=== PATIENT | male | born 1990 | race African-American/Black ===

== ENCOUNTER 2017-10-26 20:46 | Inpatient (IN) ==
--- NOTE | 2017-10-26 21:07 | ED ---
HPI General Chief complaint: Psychiatric Symptoms Stated complaint: Psych screen/VCSO Time Seen by Provider: 10/26/17 21:05 History of Present Illness HPI narrative: This is a 27-year-old male who presents under Carr act initiated by the Police Department. According to his paperwork he has been "stating to his mother and friends that he wants to kill himself. He was on Facebook today and made statements about murdering someone. Weston is seeing people that are not there and he is talking to them." The patient disputes these statements but he will not really provide any information about the context of what happened today. Therefore symptom duration is unknown. Associated signs and symptoms are unknown. He has no complaints. Related Data Home Medications Medication Instructions Recorded Confirmed bupropion HCl [Wellbutrin XL] 150 mg PO QAM 10/26/17 10/26/17 buspirone 5 mg PO BID 10/26/17 10/26/17 melatonin 3 mg PO HS 10/26/17 10/26/17 Allergies Allergy/AdvReac Type Severity Reaction Status Date / Time No Known Allergies Allergy Unverified 10/26/17 20:59 Review of Systems ROS Unobtainable All other systems reviewed negative except as stated in HPI and other (Patient refuses providing additional history) FORMERLY [facility], [facility] Medical History Medical History Depression (Acute) Medical history unknown (Acute) Social History Social History Substance History: Active Abuse Second Hand Smoke Exposure: No Smoking Status: Smoker, status unknown Tobacco Type: Cigarettes How Often Do You Have a Drink Containing Alcohol: 2 to 3 times a week Recent Travel in [facility] within the Last 8 Weeks: No Exam Narrative Exam Narrative: GENERAL: This is a well-developed well-nourished male who is agitated. SKIN: Warm and dry. HEAD: Atraumatic. Normocephalic. EYES: Pupils equal and round. No scleral icterus. No injection or drainage. ENT: No nasal bleeding or discharge. Mucous membranes pink and moist. NECK: Trachea midline. No JVD. CARDIOVASCULAR: Regular rate and rhythm. No murmur appreciated. RESPIRATORY: No accessory muscle use. Clear to auscultation. Breath sounds equal bilaterally. GASTROINTESTINAL: Abdomen soft, non-tender, nondistended. Hepatic and splenic margins not palpable. MUSCULOSKELETAL: No obvious deformities. No clubbing. No cyanosis. No edema. NEUROLOGICAL: Awake and alert. No obvious cranial nerve deficits. Motor grossly within normal limits. Normal speech. PSYCHIATRIC: Agitated. Course Initial Documented Vital Signs Temperature 98.5 F 10/26/17 20:54 Pulse Rate 135 H 10/26/17 20:54 Respiratory Rate 18 10/26/17 20:54 Blood Pressure 132/93 H 10/26/17 20:54 Pulse Oximetry 96 10/26/17 20:54 Last Documented Vital Signs Temperature 98.5 F 10/26/17 20:54 Pulse Rate 125 H 10/26/17 23:02 Respiratory Rate 16 10/26/17 23:02 Blood Pressure 164/95 H 10/26/17 23:02 Pulse Oximetry 97 10/26/17 23:02 Medical Decision Making MDM Narrative Medical decision making narrative: Mental health screening discussed with the patient. Psychiatric screen ordered. This patient became increasingly agitated Ativan verbally threatening. She required chemical sedation and physical restraints. His lab work is been reviewed. Notable for creatinine of 1.74 and an alcohol level 183. The patient is medically cleared for psychiatric disposition. Differential Diagnosis Differential Diagnosis: Adjustment reaction, acute psychosis, substance-induced mood disorder, major depressive disorder, bipolar disorder, schizophrenia Lab Data Result diagrams: 10/26/17 20:58 10/26/17 20:58 Lab Results 10/26/17 10/26/17 Range/Units 20:58 20:58 WBC 7.2 (4.0-11.0) th/mm3 RBC 5.02 (4.50-5.90) mil/mm3 Hgb 15.7 (13.0-17.0) gm/dL Hct 46.0 (39.0-51.0) % MCV 91.7 (80.0-100.0) fL MCH 31.2 (27.0-34.0) pg MCHC 34.1 (32.0-36.0) % RDW 13.3 (11.6-17.2) % Plt Count 245 (150-450) th/mm3 MPV 10.6 (7.0-11.0) fL Neut % (Auto) 50.3 (16.0-70.0) % Lymph % (Auto) 45.0 H (9.0-44.0) % [place] % (Auto) 4.2 (0.0-8.0) % Eos % (Auto) 0.2 (0.0-4.0) % Baso % (Auto) 0.3 (0.0-2.0) % Neut # (Auto) 3.6 (1.8-7.7) th/mm3 Lymph # (Auto) 3.3 (1.0-4.8) th/mm3 [place] # (Auto) 0.3 (0.0-0.9) th/mm3 Eos # (Auto) 0.0 (0.0-0.4) th/mm3 Baso # (Auto) 0.0 (0.0-0.2) th/mm3 WBC Differential . Differential Comment Auto diff final Sodium 141 (136-145) meq/L Potassium 4.5 (3.5-5.1) meq/L Chloride 109 H (98-107) meq/L Carbon Dioxide 17.9 L (21.0-32.0) meq/L Anion Gap 14 (5-15) meq/L BUN 16 (7-18) mg/dL Creatinine 1.76 H (0.60-1.30) mg/dL Estimated GFR 57 L (>89) mL/min Random Glucose 112 H (74-106) mg/dL Calcium 9.8 (8.5-10.1) mg/dL Total Bilirubin 0.6 (0.2-1.0) mg/dL AST 39 H (15-37) U/L ALT 52 (12-78) U/L Alkaline Phosphatase 50 (45-117) U/L Total Protein 8.2 (6.4-8.2) g/dL Albumin 3.9 (3.4-5.0) g/dL TSH 2.440 (0.358-3.740) uIU/mL Serum Alcohol 183 H (0-5) mg/dL Discharge Plan Discharge Disposition Patient Disposition: 30 Still Patient Discharge Condition Condition: Stable Discharge Details Discharge Problem: Medical clearance for psychiatric admission Physicians Team ED Provider: [facility] ED Midlevel Provider: Roney Flaherty Rxs /Orders / Referrals /Forms Prescriptions: No Action bupropion HCl [Wellbutrin XL] 150 mg Tablet Extended Release 24 Hr 150 mg PO QAM RF: 0 buspirone 5 mg Tablet 5 mg PO BID RF: 0 melatonin 3 mg PO HS RF: 0 Discharge Interventions Interventions: Vital Signs Last Done: 10/26/17 23:02 Status ED Status: With Doctor
[2017-10-26 21:49] LABS: Baso % (Auto) 0.3 % (0.0-2.0); Eos % (Auto) 0.2 % (0.0-4.0); Hemoglobin 15.7 gm/dL (13.0-17.0); Lymph # (Auto) 3.3 th/mm3 (1.0-4.8); Mean Corpuscular HGB Conc 34.1 % (32.0-36.0); Mean Corpuscular Hemoglobin 31.2 pg (27.0-34.0); Mean Corpuscular Volume 91.7 fL (80.0-100.0); Mean Platelet Volume 10.6 fL (7.0-11.0); Mono # (Auto) 0.3 th/mm3 (0.0-0.9); Mono % (Auto) 4.2 % (0.0-8.0); Neut # (Auto) 3.6 th/mm3 (1.8-7.7); Neut % (Auto) 50.3 % (16.0-70.0); Platelet Count 245 th/mm3 (150-450); Red Blood Count 5.02 mil/mm3 (4.50-5.90); Red Cell Distribution Width 13.3 % (11.6-17.2); White Blood Count 7.2 th/mm3 (4.0-11.0)
[2017-10-26 22:34] LABS: Alanine Aminotransferase 52 U/L (12-78); Albumin 3.9 g/dL (3.4-5.0); Alcohol 183 mg/dL (0-5); Alkaline Phosphatase 50 U/L (45-117); Anion Gap 14 meq/L (5-15); Aspartate Aminotransferase 39 U/L (15-37); Blood Urea Nitrogen 16 mg/dL (7-18); Calcium 9.8 mg/dL (8.5-10.1); Carbon Dioxide 17.9 meq/L (21.0-32.0); Chloride 109 meq/L (98-107); Glomerular Filtration Rate 57 mL/min (>89); Glucose,Random 112 mg/dL (74-106); Potassium 4.5 meq/L (3.5-5.1); Sodium 141 meq/L (136-145); Total Protein 8.2 g/dL (6.4-8.2)
--- NOTE | 2017-10-27 15:01 | P.HPPSY ---
Provisional Diagnosis Admission Date: October 27, 2017 09:35 [place] I.: Major depressive disorder, recurrent, severe, without psychosis, alcohol use disorder [place] II.: Deferred [place] III.: No significant medical history Competence Certification of Person's Competence To Provide Express and Informed Consent I have personally examined Twila Klein JR, a person being served at [facility] on, October 27, 2017 1440. Express and informed consent means consent voluntarily given in writing, by a competent person, after sufficient explanation and disclosure of the subject matter involved to enable the person to make a knowing and willful decision without any element of force, fraud, deceit, duress, or other form of constraint or coercion. This person is 18 years of age or older, is not now known to be incompetent to consent to treatment with a guardian advocate, and does not have a health care surrogate or proxy currently making medical treatment decisions. I have found this person to be one of the following: [] Competent to provide express and informed consent, as defined above, for voluntary admission to this facility and is competent to provide express and informed consent for treatment. He/she has the consistent capacity to make well reasoned, willful, and knowing decisions concerning his or her medical or mental health treatment. The person fully and consistently understands the purpose of the admission for examination/placement and is fully capable of personally exercising all rights assured under [place] [] Incompetent to provide express and informed consent to voluntary admission, and this is incompetent to provide express and informed consent to treatment. The person must be transferred to involuntary status and a petition for a guardian advocate filed with the Circuit Court. [x] Refusing to provide express and informed consent to voluntary admission but is competent to provide express and informed consent for treatment. The person must be discharged or transferred to involuntary status. Form shall be completed within 24 hours of a person's arrival at the receiving facility and filed in the clinical record of each person: 1. Admitted on a voluntary basis 2. Permitted to provide express and informed consent to his/her own treatment 3. Allowed to transfer from involuntary to voluntary status 4. Prior to permitting a person to consent to his or her own treatment after having been previously found incompetent to consent to treatment. History of Present Illness Capacity: Has capacity History of Present Illness: The patient is a 27-year-old -English man, domiciled with his mother in [place], but , unemployed, , with psychiatric history of depression, no previous psychiatric hospitalizations, previous suicidal attempts, [facility], he is on Wellbutrin 150 mg twice daily, BuSpar 15 mg 3 times daily, no significant medical history, who presents under Carr act initiated by the Police Department. According to his paperwork he has been "stating to his mother and friends that he wants to kill himself. He was on Facebook today and made statements about murdering someone. Weston is seeing people that are not there and he is talking to them." The patient disputes these statements but he will not really provide any information about the context of what happened today. Therefore symptom duration is unknown. Associated signs and symptoms are unknown. He has no complaints. On his arrival to the ER the patient was quite agitated, aggressive , he had to be manually, physically and chemically restrained last night. He was medicated with Geodon 10 mg IM, Ativan 2 mg IM, Benadryl 50 mg IM. Today for psychiatric evaluation the patient is a still a little bit sedated, but more cooperative. He reports that he has been quite depressed in the last 2 weeks "because my brother was incarcerated and the teens has not been going very well with my ". He reports that he has been feeling depressed, with increased sense of hopelessness, helplessness, worthlessness, and suicidal thoughts. At the same time he has been drinking alcohol, not taking his medications. He says that he has been diagnosed with depression several years ago, he has been follow-up in the [place] clinic for medication and psychotherapy. He is oriented 3, no agitation or aggressive behavior present at this moment. - Inpatient Certification I certify that the inpatient services were ordered in accordance with Medicare regulations governing the order. This includes certification that hospital inpatient services are reasonable and necessary and in the case of services not specified as inpatient-only under 42 CFR 419.22(n), that they are appropriately provided as inpatient services in accordance to with the 2-midnight benchmark under 43 CFR 412.3(e) I certify that inpatient psychiatric hospital services are medically necessary. Evaluation and treatment and/or diagnostic testing are expected to improve the patient's condition. The patient needs on a daily basis, active treatment furnished directly by or requiring the supervision of inpatient psychiatric facility personnel. Review of Systems Constitutional: Denies anorexia, Denies body ache(s), Denies chills, Denies daytime sleepiness, Denies excessive sweating, Denies fatigue, Denies fever(s), Denies headache(s), Denies increased appetite, Denies lack of energy, Denies malaise, Denies night sweats, Denies weakness, Denies weight gain, Denies weight loss, Denies other Cardiovascular: Denies chest pain, Denies chest pain at rest, Denies chest pain with activity, Denies excessive sweating, Denies fainting, Denies fast heart rate, Denies foot swelling, Denies generalized swelling, Denies irregular heart rhythm, Denies leg pain with activity, Denies leg sores, Denies leg swelling, Denies lightheadedness, Denies radiating jaw, neck or arm pain, Denies rapid, pounding, or irregular heartbeat, Denies shortness of breath, Denies shortness of breath with activity, Denies shortness of breath when lying down, Denies shortness of breath causing sudden awakening, Denies slow heart rate, Denies other Respiratory: Denies change in phlegm color, Denies chest congestion, Denies cough, Denies coughing up blood, Denies excessive phlegm production, Denies pain on inspiration, Denies pain with cough, Denies shortness of breath, Denies shortness of breath with activity, Denies snoring, Denies stridor, Denies wheezing, Denies other Gastrointestinal: Denies abdominal pain, Denies belching, Denies black, tarry stools, Denies bloating, Denies bright, red blood in stools, Denies change in bowel habits, Denies constant urge to pass stool, Denies change in stools, Denies coffee ground vomit, Denies constipation, Denies cramping, Denies difficulty swallowing, Denies excessive passing of gas, Denies feeling full early, Denies heartburn, Denies incontinent of stools, Denies loose stools, Denies nausea, Denies pain with swallowing, Denies vomiting, Denies vomiting blood, Denies other Genitourinary: Denies blood in semen, Denies blood in urine, Denies decreased urination, Denies difficulty urinating, Denies difficulty with ejaculations, Denies erectile dysfunction, Denies genital lesions, Denies genital pain, Denies painful urination, Denies side pain, Denies frequent nighttime urination , Denies painful ejaculations, Denies penile discharge, Denies scrotal swelling , Denies testicle lump, Denies testicle pain, Denies urinary frequency, Denies urinary hesitancy, Denies urinary incontinence, Denies urinary urgency, Denies other Musculoskeletal: Denies abnormal walking, Denies back pain, Denies body aches, Denies decreased muscle mass, Denies deformity, Denies joint pain, Denies joint swelling, Denies limited joint movement, Denies loss of height, Denies muscle cramps, Denies muscle weakness, Denies neck pain, Denies numbness, Denies radiating pain into limb, Denies stiffness, Denies tingling, Denies other Neurologic: Denies abnormal hearing, Denies abnormal movements, Denies abnormal speech, Denies abnormal walking, Denies behavioral changes, Denies burning sensations, Denies confusion, Denies dizziness, Denies fainting, Denies frequent falls, Denies headache(s), Denies lack of coordination, Denies localized weakness, Denies loss of vision, Denies memory loss, Denies numbness, Denies other visual disturbances, Denies radiating pain, Denies restless legs, Denies convulsions, Denies seizure-like activity, Denies sensory deficit, Denies tingling, Denies tingling/numbness/burning sensations, Denies tremor(s), Denies unsteadiness, Denies weakness, Denies other Psychiatric: Reports behavioral changes, Reports depression, Reports thoughts of hurting/killing yourself [facility] - History History Provided By: Family Member, Law Enforcement - Medical History Medical History: Medical History (Last Updated 10/26/17 @ 20:56 by Candelaria Randall RN) Depression Medical history unknown - Tobacco History Second Hand Smoke Exposure: No Tobacco Use In Past 30 Days: No (UNKNOWN) Smoking Status: Smoker, status unknown Tobacco Type: Cigarettes - Alcohol History How Often Do You Have a Drink Containing Alcohol: 2 to 3 times a week - Substance Use History Substance History: Active Abuse - Substance Use Type Other Type: COUGH AND COLD Status: Active Route Used: By Mouth - Travel History Recent Travel in the [facility] Within the Last 8 Weeks: No - Immunization History Tetanus Immunization: Unsure Hx Influenza Vaccine This Season: No Medications and Allergies Allergies Allergy/AdvReac Type Severity Reaction Status Date / Time No Known Allergies Allergy Unverified 10/26/17 20:59 Home Medications Medication Instructions Recorded Confirmed Type buspirone 5 mg PO BID 10/26/17 10/26/17 History melatonin 3 mg PO HS 10/26/17 10/26/17 History Results - Labs CBC & Chem 7: 10/26/17 20:58 10/26/17 20:58 Labs: Laboratory Results - last 24 hr 10/26/17 10/26/17 20:58 20:58 WBC 7.2 RBC 5.02 Hgb 15.7 Hct 46.0 MCV 91.7 MCH 31.2 MCHC 34.1 RDW 13.3 Plt Count 245 MPV 10.6 Neut % (Auto) 50.3 Lymph % (Auto) 45.0 H [place] % (Auto) 4.2 Eos % (Auto) 0.2 Baso % (Auto) 0.3 Neut # (Auto) 3.6 Lymph # (Auto) 3.3 [place] # (Auto) 0.3 Eos # (Auto) 0.0 Baso # (Auto) 0.0 WBC Differential . Differential Comment Auto diff final Sodium 141 Potassium 4.5 Chloride 109 H Carbon Dioxide 17.9 L Anion Gap 14 BUN 16 Creatinine 1.76 H Estimated GFR 57 L Random Glucose 112 H Calcium 9.8 Total Bilirubin 0.6 AST 39 H ALT 52 Alkaline Phosphatase 50 Total Protein 8.2 Albumin 3.9 TSH 2.440 Serum Alcohol 183 H Exam Vital signs: Vital Signs 10/26/17 20:54 10/26/17 23:02 10/27/17 06:30 Temperature 98.5 F Pulse Rate 135 H 125 H 87 Respiratory Rate 18 16 Blood Pressure 132/93 H 164/95 H 123/67 Pulse Oximetry 96 97 10/27/17 06:40 Temperature Pulse Rate Respiratory Rate 16 Blood Pressure Pulse Oximetry Intake & Output 10/26/17 10/27/17 10/27/17 18:59 06:59 18:59 Weight 83.915 kg Narrative: Patient has marked psychomotor retardation, is a little bit sedated, Mental Status Examination Appearance: Appropriate Consciousness: Alert Orientation: x4 Speech: Hesitant, Slow Language: Adequate Fund of Knowledge: Adequate Memory: Unremarkable Mood: Sad Affect: Sad Thought Process & Associations: Intact Thought Content: Appropriate Hallucination Type: None Delusion Type: None Suicidal Ideation: Yes Suicidal Plan: No Suicidal Intention: No Homicidal Ideation: No Homicidal Plan: No Homicidal Intention: No Insight: Poor Judgment: Poor Assessment and Plan - Assessment (1) Major depressive disorder Code(s): F32.9 - Major depressive disorder, single episode, unspecified Status : Acute - Plan Plan: Estimated LOS: [] days Psychiatric evaluation today the patient presents guarded, superficially cooperative, he reports about 2 weeks of ongoing depression, with increased sense of helplessness, hopelessness, worthlessness, increased sensitivity to frustration rejection, suicidal thoughts to the point that yesterday the patient expressed to his family that he wanted to commit suicide. Patient reports a subacute stressors problems with his , recent incarceration with his brother, noncompliant with psychotropics. His arrival to the ER last night the patient was very agitated, aggressive, and he was described as psychotic, paranoid and having perceptual disturbances. He had to be chemically, physically and manually restrained. Given his past psychiatric history of depression, suicidal attempts, noncompliant medications and increased risk of danger to self and other he would be admitted in psychiatry for stabilization and safety. We will start Wellbutrin 150 mg twice daily. BuSpar 15 mg daily. [facility] protocol. Transfer to 2700 unit. Collateral information is still pending. Will consult psychiatry for second opinion. Justification for Continued Inpatient Stay: Patient will be admitted in psychiatry for stabilization and safety (1) Major depressive disorder Qualifiers: Major depression recurrence: recurrent Major depression episode severity: severe Psychotic features: without psychotic features
[2017-10-27] MEDS ORDERED: Acetaminophen 325 MG Tablet PO PRN (20:10)
[2017-10-27] MEDS ORDERED: Aluminum/Magnesium/Simethacone Susp 30 ML UDC PO PRN (20:10)
[2017-10-27] MEDS: LORazepam 1 MG Tablet PO PRN (21:31)
[2017-10-27] MEDS: buPROPion 150 MG 12 HR Tablet PO SCH (21:31)
[2017-10-28] MEDS: buPROPion 150 MG 12 HR Tablet PO SCH ×2 (08:34→21:07)
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
[2017-10-29] MEDS: buPROPion 150 MG 12 HR Tablet PO SCH ×2 (09:01→20:28)
--- NOTE | 2017-10-29 11:29 | P.PNPSY ---
Subjective Remarks: Patient seen and examined with nurse and counselor. Chart reviewed. Case discussed with nursing staff. No behavioral issues noted overnight. Case discussed with counselor who has obtained collateral information from the patient's mother, and I have reviewed this collateral with the counselor. On my examination today, the patient is in good spirits. He denies any suicidal or homicidal ideation. Denies any audiovisual hallucinations. He seems more receptive to the inpatient chemical dependency rehabilitation today, saying that he has spoken with his family about this yesterday. Denies side effects from medications. Says that he normally takes BuSpar 10 mg 3 times daily. No physical complaints. Vital Signs Temp Pulse Resp BP Pulse Ox 10/29/17 06:24 97.4 F L 88 16 133/74 98 10/28/17 16:00 98.3 F 98 H 18 136/93 H 100 Intake and Output 10/28/17 10/29/17 10/29/17 22:59 06:59 14:59 Other: Weight 90 kg Laboratory Results - last 24 hr 10/29/17 13:02 Sodium 142 Potassium 4.0 Chloride 106 Carbon Dioxide 30.7 Anion Gap 5 BUN 14 Creatinine 1.80 H Estimated GFR 56 L Random Glucose 111 H Calcium 8.8 Total Bilirubin 0.3 AST 33 ALT 50 Alkaline Phosphatase 50 Total Protein 6.9 D Albumin 3.5 Labs reviewed. Decreased GFR stable. Review of Systems All other systems reviewed negative except as stated in HPI Mental Status Examination Appearance: Appropriate Consciousness: Alert Orientation: x4 Motor Activity: Normal gait, Other (No motor abnormalities noted. No signs of withdrawal noted. No ictal activity noted.) Speech: Unremarkable Language: Adequate Fund of Knowledge: Adequate Attention and Concentration: Adequate Memory: Unremarkable (Grossly intact on clinical exam) Mood: Appropriate Affect: Appropriate Thought Process & Associations: Intact, Logical, Linear Thought Content: Appropriate Hallucination Type: None Delusion Type: None Suicidal Ideation: No Suicidal Plan: No Suicidal Intention: No Homicidal Ideation: No Homicidal Plan: No Homicidal Intention: No Mental Status Exam Remarks: Insight and judgment seem fair Assessment and Plan - Assessment (1) Adjustment disorder with depressed mood Code(s): F43.21 - Adjustment disorder with depressed mood Status: Acute (2) Polysubstance abuse Code(s): F19.10 - Other psychoactive substance abuse, uncomplicated Status: Acute - Plan Plan: Adjust BuSpar to reported home dose of 10 mg 3 times daily. Continue Wellbutrin as ordered. Transfer to the lower acuity unit. Continue to monitor on the inpatient unit. Continue other medications and care as ordered. Justification for Continued Inpatient Stay: Risk for decompensation in less restrictive environment Discharge Planning: Possible discharge tomorrow or after the weekend once safe discharge plan can be arranged Request Healthcare Surrogate/Guardian Advocate?: No
[2017-10-29 14:09] LABS: Alanine Aminotransferase 50 U/L (12-78); Albumin 3.5 g/dL (3.4-5.0); Alkaline Phosphatase 50 U/L (45-117); Anion Gap 5 meq/L (5-15); Aspartate Aminotransferase 33 U/L (15-37); Blood Urea Nitrogen 14 mg/dL (7-18); Calcium 8.8 mg/dL (8.5-10.1); Carbon Dioxide 30.7 meq/L (21.0-32.0); Chloride 106 meq/L (98-107); Glomerular Filtration Rate 56 mL/min (>89); Glucose,Random 111 mg/dL (74-106); Sodium 142 meq/L (136-145); Total Protein 6.9 g/dL (6.4-8.2)
[2017-10-29] MEDS: LORazepam 1 MG Tablet PO PRN (20:14)
[2017-10-30] MEDS: buPROPion 150 MG 12 HR Tablet PO SCH (08:54)
--- NOTE | 2017-10-30 11:58 | P.PNPSY ---
Subjective Remarks: Patient seen and examined with nurse. Chart reviewed. Case discussed with nursing staff. No behavioral issues noted overnight. Case discussed in treatment team. Counselor relates that patient's family has been working on identifying residential chem dep treatment program for patient, and patient will likely be able to enter into residential treatment Thursday. On my exam today, patient denies any SI or HI. He denies any AVH. He does seem a little anxious, and patient says that he is hopeful for discharge soon. Although he continues to verbalize willingness to pursue residential treatment, he is a little resistant to the idea of going directly to rehab. He speaks of various stops he will have to make along the way, and I fear this reflects ambivalence about entering into rehab and possibly also substance cravings. I think transfer directly to rehab is best to minimize risk of diversion from treatment plan and relapse. No medication side effects. No physical complaints. Vital Signs Temp Pulse Resp BP Pulse Ox 10/30/17 05:00 97.6 F 88 16 123/71 99 Intake and Output 10/29/17 10/30/17 10/30/17 22:59 06:59 14:59 Intake Total 360 / 360 Balance 360 / 360 Intake: Oral 360 / 360 Laboratory Results - last 24 hr 10/29/17 13:02 Sodium 142 Potassium 4.0 Chloride 106 Carbon Dioxide 30.7 Anion Gap 5 BUN 14 Creatinine 1.80 H Estimated GFR 56 L Random Glucose 111 H Calcium 8.8 Total Bilirubin 0.3 AST 33 ALT 50 Alkaline Phosphatase 50 Total Protein 6.9 D Albumin 3.5 Labs reviewed. Review of Systems All other systems reviewed negative except as stated in HPI Mental Status Examination Appearance: Appropriate Consciousness: Alert Orientation: x4 Motor Activity: Normal gait, Other (No signs of withdrawal noted. No other motor abnormalities noted. No ictal activity noted.) Speech: Unremarkable Language: Adequate Fund of Knowledge: Adequate Attention and Concentration: Adequate Memory: Unremarkable (Grossly intact on clinical exam) Mood: Anxious Affect: Anxious Thought Process & Associations: Intact, Logical, Linear Thought Content: Appropriate Hallucination Type: None Delusion Type: None Suicidal Ideation: No Suicidal Plan: No Suicidal Intention: No Homicidal Ideation: No Homicidal Plan: No Homicidal Intention: No Insight: Fair Judgment: Impulsive Assessment and Plan - Assessment (1) Adjustment disorder with depressed mood Code(s): F43.21 - Adjustment disorder with depressed mood Status: Acute (2) Polysubstance abuse Code(s): F19.10 - Other psychoactive substance abuse, uncomplicated Status: Acute - Plan Plan: Continue current psychotropics as ordered. Continue to monitor on the inpatient unit. Continue other care as ordered. Justification for Continued Inpatient Stay: High risk for decompensation in less restrictive environment. Discharge Planning: Anticipate discharge to chemical dependency rehabilitation program Thursday. Request Healthcare Surrogate/Guardian Advocate?: No
[2017-10-30] MEDS: LORazepam 1 MG Tablet PO PRN (18:03)
[2017-10-31] MEDS: buPROPion 150 MG 12 HR Tablet PO SCH ×2 (09:18→21:18)
--- NOTE | 2017-10-31 12:52 | P.PNPSY ---
Subjective Remarks: Patient was seen and case discussed with nursing. Patient's reasons for admission were discussed. Patient seems motivated and is looking forward to his rehab. Patient is behaving well on the unit. He has not had any aggressive or threatening behaviors. Mood is at times sad. He denies suicidal or homicidal ideation intent or plan. Compliant with medications Mental Status Examination Appearance: Appropriate Consciousness: Alert Orientation: x4 Motor Activity: Normal gait, Other (No signs of withdrawal noted. No other motor abnormalities noted. No ictal activity noted.) Speech: Unremarkable Language: Adequate Fund of Knowledge: Adequate Attention and Concentration: Adequate Memory: Unremarkable (Grossly intact on clinical exam) Mood: Sad, Anxious Affect: Anxious Thought Process & Associations: Intact, Logical, Linear Thought Content: Appropriate Hallucination Type: None Delusion Type: None Suicidal Ideation: No Suicidal Plan: No Suicidal Intention: No Homicidal Ideation: No Homicidal Plan: No Homicidal Intention: No Insight: Fair Judgment: Impulsive Assessment and Plan - Assessment (1) Adjustment disorder with depressed mood Code(s): F43.21 - Adjustment disorder with depressed mood Status: Acute (2) Polysubstance abuse Code(s): F19.10 - Other psychoactive substance abuse, uncomplicated Status: Acute - Plan Plan: Continue current treatment plan Justification for Continued Inpatient Stay: Patient would decompensate in a less restrictive setting Request Healthcare Surrogate/Guardian Advocate?: No
[2017-10-31] MEDS: Melatonin 5 MG Tablet PO PRN (21:17)
[2017-11-01] MEDS: buPROPion 150 MG 12 HR Tablet PO SCH ×3 (08:39→21:30)
--- NOTE | 2017-11-01 13:17 | P.PNPSY ---
Subjective Remarks: Patient was seen and case discussed with nursing. Today patient is more blunted with soft slow speech. He feels that rehab may be a waste of time. Supportive therapy was conducted. Describes his mood today as "tired." He denies suicidal or homicidal ideation plan. He is compliant with his medications and staying out of his room Mental Status Examination Appearance: Appropriate Consciousness: Alert Orientation: x4 Motor Activity: Normal gait, Other (No signs of withdrawal noted. No other motor abnormalities noted. No ictal activity noted.) Speech: Unremarkable Language: Adequate Fund of Knowledge: Adequate Attention and Concentration: Adequate Memory: Unremarkable (Grossly intact on clinical exam) Mood: Other (Tired) Affect: Blunt Thought Process & Associations: Intact, Logical, Linear Thought Content: Appropriate Hallucination Type: None Delusion Type: None Suicidal Ideation: No Suicidal Plan: No Suicidal Intention: No Homicidal Ideation: No Homicidal Plan: No Homicidal Intention: No Insight: Fair Judgment: Impulsive Assessment and Plan - Assessment (1) Adjustment disorder with depressed mood Code(s): F43.21 - Adjustment disorder with depressed mood Status: Acute (2) Polysubstance abuse Code(s): F19.10 - Other psychoactive substance abuse, uncomplicated Status: Acute - Plan Plan: Continue current treatment plan Justification for Continued Inpatient Stay: Patient would decompensate in a less restrictive setting Request Healthcare Surrogate/Guardian Advocate?: No
[2017-11-01] MEDS: Melatonin 5 MG Tablet PO PRN (21:10)
[2017-11-02] MEDS: buPROPion 150 MG 12 HR Tablet PO SCH (08:41)
--- NOTE | 2017-11-02 09:35 | P.DSPSY ---
Psychiatry Discharge Summary Inpatient Psychiatric care?: Yes Advance Directives: No Mental Health Advance Directive: No Health Care Proxy: No - Admission Admission Date: October 27, 2017 09:35 - Admission Diagnosis (1) Major depressive disorder Code(s): F32.9 - Major depressive disorder, single episode, unspecified Brief History: The patient is a 27-year-old -[place] man, domiciled with his mother in [place], but , unemployed, , with psychiatric history of depression, no previous psychiatric hospitalizations, previous suicidal attempts, outpatient psychiatric care through the [facility], he is on Wellbutrin 150 mg twice daily, BuSpar 15 mg 3 times daily, no significant medical history, who presents under [place] act initiated by the [employer]. According to his paperwork he has been "stating to his mother and friends that he wants to kill himself. He was on Facebook today and made statements about murdering someone. Weston is seeing people that are not there and he is talking to them." The patient disputes these statements but he will not really provide any information about the context of what happened today. Therefore symptom duration is unknown. Associated signs and symptoms are unknown. He has no complaints. On his arrival to the ER the patient was quite agitated, aggressive , he had to be manually, physically and chemically restrained last night. He was medicated with Geodon 10 mg IM, Ativan 2 mg IM, Benadryl 50 mg IM. Today for psychiatric evaluation the patient is a still a little bit sedated, but more cooperative. He reports that he has been quite depressed in the last 2 weeks "because my brother was incarcerated and the teens has not been going very well with my ". He reports that he has been feeling depressed, with increased sense of hopelessness, helplessness, worthlessness, and suicidal thoughts. At the same time he has been drinking alcohol, not taking his medications. He says that he has been diagnosed with depression several years ago, he has been follow-up in the [facility] for medication and psychotherapy. He is oriented 3, no agitation or aggressive behavior present at this moment. Tobacco Use In Past 30 Days: No How Often Do You Have a Drink Containing Alcohol: 4 or more times a week Hospital Course: Patient was admitted to a locked, inpatient psychiatric unit. Appropriate precautions were in place throughout patient's hospital stay. Patient was seen and examined on the unit by psychiatry and also visited by counselor. Psychotropic medications were adjusted. There was no evidence of any suicidality or homicidality on the inpatient unit. There was no evidence of self-care deficit. Patient remained in good behavioral control and was compliant with medications. Collateral information was obtained by the counselor from the patient's family. Discharge plan has been arranged for patient to enter into inpatient chemical dependency rehabilitation program. On the day of discharge: Patient seen and examined with nurse. Chart reviewed. Case discussed with nursing staff. No behavioral issues noted overnight. Case discussed with counselor. On my examination today, the patient is requesting discharge from the inpatient psychiatric unit today. He denies any suicidal or homicidal ideation, intent or plan and contracts for safety. Mood is "good" and I can elicit no depressive or hypomanic/manic symptoms. Anxiety is considerably attenuated versus admission. He denies any audiovisual hallucinations. I can elicit no delusional material. There is no evidence of impairment in reality construction. He denies side effects from medications. No physical complaints. Suicide and violence risk assessment on day of discharge both suggest lower imminent risk from mental illness as defined under the Carr act, and the patient's level of function is adequate for outpatient care. The patient has maximized benefit from this inpatient psychiatric hospital stay and will be discharged today with psychiatric follow-up as arranged by counselor. Patient is also to follow up with primary care. I have supported the patient in his desire for abstinence from substances of abuse. I have counseled the patient regarding warning signs for need to return to the psychiatric emergency room as part of a general safety plan. - Discharge Discharge Date: 11/02/17 - Discharge Diagnosis (1) Adjustment disorder with depressed mood Diagnosis: Principal (Resolved) Code(s): F43.21 - Adjustment disorder with depressed mood Status: Acute (2) Polysubstance abuse Diagnosis: Secondary Code(s): F19.10 - Other psychoactive substance abuse, uncomplicated Status: Acute Discharge Disposition: Chemical dependency treatment program - Discharge Instructions Discharge Diet: Regular Diet Activities You Can Perform: Weight Bearing As Tolerat - Discharge Time <= 30 minutes Mental Status Examination Appearance: Appropriate Consciousness: Alert Orientation: x4 Motor Activity: Normal gait, Other (No ictal activity noted. No signs of withdrawal noted. No other motor abnormalities noted.) Speech: Unremarkable Language: Adequate Fund of Knowledge: Adequate Attention and Concentration: Adequate Memory: Unremarkable (Remains grossly intact on clinical exam) Mood: Good Affect: Appropriate Thought Process & Associations: Intact, Logical, Goal directed, Linear Thought Content: Appropriate Hallucination Type: None Delusion Type: None Suicidal Ideation: No Suicidal Plan: No Suicidal Intention: No Homicidal Ideation: No Homicidal Plan: No Homicidal Intention: No Mental Status Exam Remarks: Insight and judgment are perhaps fair Discharge/Advance Care Plan - Results Vital Signs: Last Vital Signs Temp 97.9 F 11/02/17 06:04 Pulse 83 11/02/17 06:04 Resp 19 11/02/17 06:04 BP 131/71 11/02/17 06:04 Pulse Ox 100 11/02/17 06:04 Lab Results: Laboratory Results TSH 2.440 uIU/mL (0.358-3.740) 10/26/17 20:58 Summary of Procedures: None done Pending Results: None - Medications Number of antipsychotic medications at discharge: 0 - Discharge Care Plan Goals to Promote Your Health: * To prevent worsening of your condition and complications * To maintain your health at the optimal level Directions to Meet Your Goals: Take your medications as prescribed Follow your dietary instruction Follow activity as directed Keep your appointments as scheduled Take your immunizations and boosters as scheduled If your symptoms worsen call your PCP, if no PCP go to Urgent Care Center or Emergency Room For 10/11 questions related to your inpatient stay or results of tests pending at discharge, please contact Dr. Antonio Pollock MD at Smoking is Dangerous to Your Health. Avoid second hand smoking (1) Major depressive disorder Qualifiers: Major depression recurrence: recurrent Major depression episode severity: severe Psychotic features: without psychotic features
== END 2017-11-02 10:55 | disposition home or self-care (01) ==
LOC: NEPJ 20:46 → NEDA 10-27 09:35 → H270 10-27 15:45 → H260 10-29 14:03
PROVIDERS: ADMIT Psychiatry & Neurology Psychiatry; ATTEND Psychiatry & Neurology Psychiatry